=== PATIENT | female | born 1990 | race Caucasian/White ===

== ENCOUNTER 2020-09-14 09:20 | Emergency (ER) | payer BC, OTHER ==
[2020-09-14 09:25] VITALS: BP 130/80; PULSE 63; TEMP 99; BMI 44.2
[2020-09-14] MEDS ORDERED: MAG HYDROX/AL HYDROX/SIMETH -MYLANTA- ORAL SUSPENSION PO ONE (09:33)
[2020-09-14] MEDS ORDERED: FAMOTIDINE 10 MG TABLET PO ONE (09:33)
[2020-09-14] MEDS ORDERED: MAG HYDROX/AL HYDROX/SIMETH 30 ML UNIT-DOSE CUP ONE (09:42)
[2020-09-14] MEDS ORDERED: FAMOTIDINE 20 MG TABLET ONE (09:42)
== END 2020-09-14 10:10 | disposition home or self-care (01) ==
LOC: FER 09:20
DX: R10.13 Epigastric pain (principal)
CPT/HCPCS: 84703; 99283-25

== ENCOUNTER 2021-02-11 20:01 | Emergency (ER) | payer OTHER ==
[2021-02-11 20:12] VITALS: BMI 44.1
[2021-02-11 20:52] VITALS: BP 129/78; PULSE 88; TEMP 98.6
[2021-02-13 23:06] LABS: SARS-CoV-2 NAA Not Detected (Not Detected)
== END 2021-02-11 21:08 | disposition home or self-care (01) ==
LOC: FER 20:01
DX: Z20.822 Contact with and (suspected) exposure to COVID-19 (principal)
CPT/HCPCS: 99283-25; C9803; U0003; U0005

== ENCOUNTER 2023-09-09 00:20 | Observation (INO) | payer OTHER ==
[2023-09-09 01:39] VITALS: BMI 40.7
[2023-09-09 02:46] LABS: BASO % 0.7 % (0-2.0); EOS % 1.6 % (0-4.5); HEMATOCRIT 34.5 % (32.4-45.2); HEMOGLOBIN 11.8 GM/dL (10.7-15.3); LYMPH % 34.6 % (8-40); MCH 31.7 pg (25.7-33.7); MCHC 34.2 g/dl (32.0-36.0); MEAN CELL VOLUME 92.8 fl (80-96); MEAN PLT VOLUME 7.6 fl (7.5-11.1); MONO % 6.4 % (3.8-10.2); NEUT % 56.7 % (42.8-82.8); PLATELET COUNT 333 10^3/uL (134-434); POTASSIUM 3.8 mmol/L (3.5-5.1); RBC 3.72 M/mm3 (3.60-5.2); RDW 13.9 % (11.6-15.6)
[2023-09-09 02:48] LABS: CALCIUM 8.4 mg/dL (8.5-10.1)
[2023-09-09 02:49] LABS: ALBUMIN 3.7 g/dl (3.4-5.0); BLOOD UREA NITROGEN 9.3 mg/dL (7-18)
[2023-09-09 02:52] LABS: CREATININE 0.6 mg/dL (0.55-1.3)
[2023-09-09 02:53] LABS: BILIRUBIN,TOTAL 0.2 mg/dL (0.2-1); TOT PROT 7.2 g/dl (6.4-8.2)
[2023-09-09 03:10] LABS: METHADONE, UR NEGATIVE (NEGATIVE); OPIATES, URI NEGATIVE (NEGATIVE); URINE AMPHETAMINES NEGATIVE (NEGATIVE); URINE BARBITURATES NEGATIVE (NEGATIVE)
[2023-09-09 03:11] LABS: PHENCYCLIDINE,URINE NEGATIVE (NEGATIVE)
[2023-09-09 03:18] LABS: COCAINE, UR POSITIVE (NEGATIVE); URINE BENZODIAZEPINES POSITIVE (NEGATIVE)
[2023-09-09] MEDS ORDERED: FLUORESCEIN NA 1 EA STRIP ONE (09:46)
[2023-09-09 13:04] VITALS: RESP 18
[2023-09-09] MEDS: SODIUM CHLORIDE 1,000 ML IV SCH (14:05)
[2023-09-10 08:08] LABS: ALBUMIN 3.8 g/dl (3.4-5.0); BILIRUBIN,TOTAL 0.4 mg/dl (0.2-1); CALCIUM 8.5 mg/dl (8.5-10.1); CREATININE 0.5 mg/dl (0.6-1.3); MAGNESIUM 2.2 mg/dL (1.8-2.4); PHOSPHOROUS 3.5 (2.5-4.9); POTASSIUM 3.9 mmol/L (3.5-5.1); TOT PROT 6.2 g/dl (6.4-8.2)
[2023-09-10 09:09] LABS: BASO % 0.8 % (0-2.0); EOS % 3.9 % (0-4.5); HEMATOCRIT 34.7 % (32.4-45.2); HEMOGLOBIN 11.9 GM/dL (10.7-15.3); LYMPH % 32.5 % (8-40); MCH 31.6 pg (25.7-33.7); MCHC 34.2 g/dl (32.0-36.0); MEAN CELL VOLUME 92.6 fl (80-96); MEAN PLT VOLUME 7.6 fl (7.5-11.1); MONO % 6.6 % (3.8-10.2); NEUT % 56.2 % (42.8-82.8); PLATELET COUNT 275 10^3/uL (134-434); RBC 3.75 M/mm3 (3.60-5.2); RDW 13.8 % (11.6-15.6); WHITE BLOOD COUNT 6.1 K/mm3 (4.0-10.0)
[2023-09-10] MEDS: ENOXAPARIN NA (PORCINE) 40 MG/0.4 ML DISP.SYRIN SQ SCH (09:54)
[2023-09-10] MEDS: FOLIC ACID 1 MG TABLET (FP) PO SCH (13:56)
[2023-09-10] MEDS: THIAMINE 100 MG TABLET PO SCH (13:56)
[2023-09-11 06:58] VITALS: PULSE 75
[2023-09-11 08:05] LABS: HEMATOCRIT 38.1 % (32.4-45.2); HEMOGLOBIN 12.1 G/dL (10.7-15.3); MCH 29.9 pg (25.7-33.7); MCHC 31.7 g/dl (32.0-36.0); MEAN CELL VOLUME 94.3 fl (80-96); MEAN PLT VOLUME 7.7 fl (7.5-11.1); PLATELET COUNT 282.5 10^3/uL (134-434); RBC 4.04 10^6/uL (3.60-5.2); RDW 13.5 % (11.6-15.6); WHITE BLOOD COUNT 6.3 10^3/uL (4.0-10.8)
[2023-09-11 08:20] LABS: CALCIUM 8.5 mg/dl (8.5-10.1); CREATININE 0.5 mg/dl (0.6-1.3)
[2023-09-11 15:02] VITALS: BP 123/68; TEMP 97.4
== END 2023-09-11 16:19 | disposition home or self-care (01) ==
LOC: FER 00:20 → FM/S 11:29
PROVIDERS: ADMIT Internal Medicine; ATTEND Internal Medicine
PROC: 3E023GC Introduction of Other Therapeutic Substance into Muscle, Percutaneous Approach (ICD-10-PCS; principal; 2023-09-09)
PROC: 3E0337Z Introduction of Electrolytic and Water Balance Substance into Peripheral Vein, Percutaneous Approach (ICD-10-PCS; 2023-09-09)
DX: T42.4X1A Poisoning by benzodiazepines, accidental (unintentional), initial encounter (principal); S61.512A Laceration without foreign body of left wrist, initial encounter; W26.0XXA Contact with knife, initial encounter; Y93.89 Activity, other specified; Y92.099 Unspecified place in other non-institutional residence as the place of occurrence of the external cause; Z87.891 Personal history of nicotine dependence
CPT/HCPCS: 36415; 80048; 80053; 80307; 83735; 84100; 85025; 85027; 93005; 96360; 96372; 97116-GP; 97161-GP; 99285-25; G0378